=== PATIENT | male | born 1940 | race African-American/Black ===

== ENCOUNTER → 2016-06-15 | Outpatient (CLI) | payer MEDICARE ==
[2014-01-21 15:10] VITALS: BP 157/79
[~2016-06-15] MED LIST: ASPI81TA50 PO; CARV12.52 PO; CHOL20004 PO; CYAN10005 PO; IOHEXOL 180 MG/ML 10 ML VIAL. ONE; MULT1TAB52 PO; OMEG1CAP6 PO; SIMV20TA3 PO; SPIR25TA3 PO; methylPREDNISolone ACETATE 40 MG/ML VIAL. ONE; methylPREDNISolone ACETATE 80 MG/ML VIAL. ONE
--- NOTE | 2016-06-16 04:48 | PAIN ---
DATE OF SERVICE: 06/15/2016 DIAGNOSES: Lumbar radiculopathy with lumbar degenerative disk disease and lumbar spinal stenosis. HISTORY OF PRESENT ILLNESS: The patient is a 76-year-old male who returns for followup status post lumbar epidural steroid injection x 1. The patient reports only about 10% improvement in the low back and left leg and hip pain. The patient reports still significant pain with walking, standing, using a walker to ambulate, left hip, left lower extremity, again ____ for about a year. We reviewed his MRI scan with him again today demonstrating some significant impingement on the L4-L5 disk on the left side impinging the left L4 nerve root. The patient would like to try another injection today as we discussed it may take more of these so he ____ feeling much better and is hopeful with small improvement after the first injection that the second one may be more productive. The patient reports otherwise no new motor or sensory deficits, no new bowel or bladder incontinence or other complaints. The patient's old chart was reviewed as his current medication regimen and updated. Current review of systems updated today as well. PHYSICAL EXAMINATION: VITAL SIGNS: Today, the patient's blood pressure is 150/86, pulse 75, respirations 18, temperature 97.7 degrees Fahrenheit, weight is 158 pounds. GENERAL: The patient is awake, alert, oriented, appropriate, very pleasant demeanor. HEENT: Shows normocephalic, atraumatic. Extraocular movements are intact and symmetrical. Oral cavity shows mucous membranes are moist and pink. NECK: Shows anterior throat supple. CHEST: Shows breath sounds are clear to auscultation bilaterally. HEART: Shows S1 and S2 clear. BACK: Shows spine grossly in midline. Lumbar paraspinous musculature shows diffuse tenderness throughout the upper, middle and lower distribution and only diffusely without radiation. No tenderness over the sacrum or sacroiliac regions. EXTREMITIES: Lower extremities show deep tendon reflexes at 1+ in the patellar tendons. Motor exam is approximately 3 on a scale of 5 with right dorsiflexion, extension and 4/5 on the left. Options were discussed with the patient. We will proceed with a second lumbar epidural steroid injection today with fluoroscopic guidance. Risks were again discussed including, but not limited to bleeding, infection, possibility of epidural hematoma and subsequent neurological compromise, dural puncture, headaches, spinal cord and/or nerve damage, side effects of steroid medication and poor results regarding pain control. The patient understands and wishes to proceed. The patient will return to clinic in approximately 2 weeks for followup. He was counseled on return appointment, activity level and side effects to be aware of. DIAGNOSES: Lumbar radiculopathy with lumbar degenerative disk disease and lumbar spinal stenosis. PROCEDURE: Lumbar epidural steroid injection in translaminar approach at the L4-L5 level with fluoroscopic guidance under sterile prep and drape using local anesthetic. Medications injected 120 mg of Depo-Medrol plus 10 mL of preservative-free normal saline and 2 mL of Isovue contrast. Condition at discharge is stable. The patient tolerated the procedure well, had no complications. EUGENE JACOBS MD DR: DWAYNE/heide JOB#: [id number] / [id number]
== END | disposition home or self-care (01) ==
LOC: PNCL 09:48
PROVIDERS: ATTEND Anesthesiology
DX: M51.16 Intervertebral disc disorders with radiculopathy, lumbar region (principal)
CPT/HCPCS: 62323; J1030; J1040

== ENCOUNTER → 2016-06-29 | Outpatient (CLI) | payer MEDICARE ==
[2014-01-21 15:10] VITALS: BP 157/79
[~2016-06-29] MED LIST changes: -IOHEXOL 180 MG/ML 10 ML VIAL. ONE; -methylPREDNISolone ACETATE 40 MG/ML VIAL. ONE; -methylPREDNISolone ACETATE 80 MG/ML VIAL. ONE
--- NOTE | 2016-06-29 10:41 | PAIN ---
DATE OF SERVICE: 06/29/2016 PROGRESS NOTE CHIEF COMPLAINT: Lumbar radiculopathy with lumbar degenerative disk disease and lumbar spinal stenosis. HISTORY OF PRESENT ILLNESS: The patient is a 76-year-old male who returns for followup status post lumbar epidural steroid injections x 2. The patient reports only very minimal decrease in pain about 10% at the most, but still significant pain in the low back and left lower extremity as it was previously. The patient reports the pain is now back at baseline and has been since his second injection after about 2-3 days. The patient reports it as aching, dull, shooting pain in the left lateral and anterior thigh, medial thigh and to the medial lower leg as it was previously, much worse with standing and walking, but better with sitting down as he has had previously. The patient's MRI scan was reviewed with him today showing significant impingement in the left L4 nerve root at the L4-L5 level and also on the right at L5-S1 with more severe narrowing on the left at L4-L5. The patient reports his pain as a 2 on a scale of 10 with sitting, but it can be as high as a 9 or 10 with standing and walking. He is still using a walker to ambulate, reports aching and dull pain, shooting pain, sharp into the leg as previously. The patient reports no new motor or sensory deficits, no new bowel or bladder incontinence or other complaints. PHYSICAL EXAMINATION: VITAL SIGNS: Today, the patient's blood pressure is 148/83, pulse is 82, respirations 18, temperature 98.0 degrees Fahrenheit, height is 5 feet 8 inches and weighs 154 pounds. GENERAL: The patient is awake, alert, oriented, appropriate, very pleasant demeanor. HEENT: Shows normocephalic, atraumatic. Extraocular movements are intact and symmetrical. Oral cavity shows mucous membranes are moist and pink. Dentition is intact. NECK: Shows anterior throat supple without palpable lymphadenopathy noted. Swallow reflex is symmetrical. Neck shows full rotation and motion of cervical spine. CHEST: Shows normal on inspection. Breath sounds are clear to auscultation bilaterally. HEART: Shows S1 and S2 clear. ABDOMEN: Soft, nontender, and nondistended. No palpable organomegaly is noted. BACK: Shows spine grossly in midline. Lumbar paraspinous muscle shows some moderate tenderness throughout the upper, middle and lower distribution, but is symmetrical on inspection without evidence of atrophy or hypertrophy. No tenderness over the sacrum or sacroiliac regions. The patient does show good rotation and motion of lumbar spine, both laterally greater than 10 degrees as well as extension greater than 10 degrees, forward flexion 45 degrees without significant increase in pain. EXTREMITIES: Lower extremities show deep tendon reflexes 1+ in the patellar and tendo calcaneus tendons and are equal. Motor exam is approximately 3-4 on a scale 5 on the right with dorsiflexion, extension and 4/5 on the left. Peripheral pulses are 1+ posterior tibial and dorsalis pedis pulses. No peripheral edema is noted bilaterally. PLAN: Options were discussed with the patient. The patient's old chart was reviewed as his current medication regimen and updated. Current review of systems updated today as well. We will hold on any further injections as he has not had any significant improvement after the last injection. We did discuss possible neurosurgical alternatives and the patient would like to consider this and would also to discuss it with his primary physician first, but this may be the best recommendation and has to have more lasting pain relief as he has been resistant to conservative therapies at this point. Again, the patient will consider this, discuss it with his primary physician and followup on as needed basis. EUGENE JACOBS MD DR: DWAYNE/heide JOB#: [id number] / [id number] MARY GRACE Camacho
== END | disposition home or self-care (01) ==
LOC: PNCL 08:59
PROVIDERS: ATTEND Anesthesiology
DX: M51.16 Intervertebral disc disorders with radiculopathy, lumbar region (principal); M48.06 Spinal stenosis, lumbar region
CPT/HCPCS: G0463

== ENCOUNTER → 2016-08-12 | Outpatient (CLI) | payer MEDICARE ==
[2014-01-21 15:10] VITALS: BP 157/79
[~2016-08-12] MED LIST changes: +IOHEXOL 180 MG/ML 10 ML VIAL. IT ONE; +LIDOCAINE 1% Multi-Dose 20 ML VIAL. ID ONE
--- NOTE | 2016-08-12 11:41 | KCIC ---
PROCEDURE Fluoroscopic guided lumbar puncture for lumbar CT myelography; lumbar spine CT myelogram. HISTORY Chronic lower back pain. TECHNIQUE The risks of the procedure were discussed with the patient and written and verbal consent was obtained. A time-out was performed. Fluoroscopic imaging of the lumbar spine was performed and a site overlying L5-S1 was selected. The skin overlying this region was sterilely prepped, draped and infiltrated with 1 percent lidocaine. A 25 gauge needle was advanced into the thecal sac and appropriate needle tip position was confirmed with spontaneous yield of cerebral spinal fluid within the needle hub. 15 cc Omnipaque 180 intrathecal contrast was injected into the thecal sac. The needle was removed and a sterile bandage was placed at the needle entry site. Five fluoroscopic images were obtained in the prone, lateral neutral and flexion and extension positions. The total fluoroscopy time was 53 seconds. The patient was then transferred to the CT suite for the post injection CT portion of the exam. The patient tolerated the procedure without difficulty and was discharged in stable condition. One or more of the following individualized dose reduction techniques were utilized for this examination: 1. Automated exposure control; 2. Adjustment of the mA and/or kV according to patient size; 3. Use of iterative reconstruction technique. COMPARISON CT dated 04/22/2016. FINDINGS There is grade 1 anterolisthesis of L4 on L5, measuring 7 mm. This slightly increases with flexion and decreases with extension on fluoroscopic images. There is slight retrolisthesis of L1 on L2, and to a lesser extent, L2 on L3 and L3 on L4. This is not significantly change between flexion and extension. There is S shaped lumbar scoliosis, with levo curvature centered at L2-L3 and dextro curvature centered at L4-L5. There is degenerative endplate remodeling with osteophytosis and disc space narrowing primarily along the right aspect of L2-L3. This corresponds with the level of maximum scoliotic concavity. There is vacuum phenomenon at all levels. There is a suspected hemangioma within L4. No suspicious osseous lesion is seen. The conus terminates at T12-L1. There are wavy nerve roots throughout the cauda equina due to redundancy in the setting of central canal stenosis, described in detail below. There is vacuum phenomenon and minimal spurring involving the sacroiliac joints. There is a small bone island within the left sacrum and iliac bone. At T12-L1, there is a diffuse disc bulge and endplate remodeling with anterior osteophytosis. There is mild bilateral facet arthropathy. There is no stenosis. At L1-L2, there is a diffuse disc bulge and endplate remodeling with anterior osteophytosis. There is mild facet arthropathy. There is hypertrophy of the ligamentum flavum. There is retrolisthesis. There is mild bilateral foraminal stenosis with abutment of the exiting L1 nerve roots. There is mild central canal stenosis. At L2-L3, there is a right foraminal to lateral predominant disc bulge and endplate osteophytosis. There is mild to moderate right and moderate left facet arthropathy. There is hypertrophy of the ligamentum flavum. There is retrolisthesis. There is severe right and moderate left foraminal stenosis with effacement of the exiting right L2 nerve root. There is moderate central canal stenosis. At L3-L4, there is a diffuse disc bulge and endplate osteophytosis. There is mild right and moderate left facet arthropathy. There is hypertrophy of the ligamentum flavum. There is retrolisthesis. There is moderate to severe right and severe left foraminal stenosis with effacement of the exiting L3 nerve roots. There severe central canal stenosis with complete effacement of the thecal sac and crowding of the nerve roots. At L4-L5, there is a broad-based posterior central to left paracentral disc protrusion with extrusion extending 8 mm superior to the disc space. This is superimposed on a left lateral predominant disc bulge and endplate osteophytosis. There is anterolisthesis. There is moderate to severe facet arthropathy. There is hypertrophy of the ligamentum flavum. There is moderate to severe right and severe left foraminal stenosis with effacement of the exiting L4 nerve roots. There is moderate to severe central canal stenosis with near complete effacement of the thecal sac. At L5-S1, there is a diffuse disc bulge with bilateral posterior lateral predominant osteophyte complexes superimposed on a diffuse disc bulge. There is mild right and moderate left facet arthropathy. There is severe right and moderate to severe left foraminal stenosis with effacement of the exiting L5 nerve roots. IMPRESSION 1. Multilevel advanced degenerative change throughout the lower thoracic and lumbar spine, described in detail above. This results in mild bilateral foraminal and central canal stenosis at L1-L2, severe right and moderate left foraminal and moderate central canal stenosis at L2-L3, moderate to severe right and severe left foraminal and severe central canal stenosis at L3-L4, moderate to severe right and severe left foraminal with moderate to severe central canal stenosis at L4-L5, and severe right and moderate to severe left foraminal stenosis at L5-S1. 2. S shaped lumbar scoliosis and multilevel listhesis. There is grade 1 anterolisthesis of L4 on L5 which slightly changes between flexion and extension. Electronically signed by: Latonya Fuller (Aug 12, 2016 11:40:44)
== END | disposition home or self-care (01) ==
LOC: KCIC 09:21
PROVIDERS: ATTEND Neurological Surgery
DX: M47.896 Other spondylosis, lumbar region (principal); G89.29 Other chronic pain; M54.5 Low back pain; M48.06 Spinal stenosis, lumbar region
CPT/HCPCS: 72132; 72265

== ENCOUNTER → 2017-05-16 | Outpatient (CLI) | payer BC ==
[2014-01-21 15:10] VITALS: BP 157/79
[~2017-05-16] MED LIST changes: -CHOL20004 PO; +CHOL200074 PO; -IOHEXOL 180 MG/ML 10 ML VIAL. IT ONE; -LIDOCAINE 1% Multi-Dose 20 ML VIAL. ID ONE
--- NOTE | 2017-05-16 15:01 | KCIC ---
LUMBAR SPINE MIN 4V Clinical Indication: Chronic low back pain radiating into bilateral hips increasing times past 2 years. No injury. Comparison: CT lumbar spine post myelogram August 12, 2016. Findings: Degenerative endplate spurring in the lumbar spine. No acute compression fracture is seen. There is grade 1 anterolisthesis of L4 on L5 and grade 1 retrolisthesis of L1 on L2 and L2 on L3. The alignment is stable. There is disc space narrowing, vacuum disc phenomenon, and endplate sclerosis of L2/L3 and L5/S1. A pars defect is not identified on the bilateral oblique views. There is a catheter in the right abdomen. IMPRESSION: 1. No acute compression fracture. 2. Moderate degenerative spondylosis for patient age. Electronically signed by: James Babin MD (05/16/2017 2:57 PM) [id number]
--- NOTE | 2017-05-16 15:04 | KCIC ---
HIP BILATERAL WITH PELVIS Clinical Indication: Chronic low back pain into bilateral hips increasing x2 years. No injury. Comparison: None. Findings: No acute pelvic fracture. The sacroiliac joints are symmetric. No acute fracture or dislocation of the right or left hip. No significant joint space narrowing. Mild primary degenerative arthropathy. A catheter projects over the right iliac wing. IMPRESSION: No acute bone abnormality. Electronically signed by: James Babin MD (05/16/2017 3:00 PM) [id number]
== END | disposition home or self-care (01) ==
LOC: KCIC 14:00
PROVIDERS: ATTEND Family Medicine
DX: M47.896 Other spondylosis, lumbar region (principal)
CPT/HCPCS: 72110; 73521

== ENCOUNTER → 2017-06-09 | Outpatient (CLI) | payer BC | END | disposition home or self-care (01) | LOC: PNCL 08:21 | DX: M51.16 Intervertebral disc disorders with radiculopathy, lumbar region (principal); M48.061 Spinal stenosis, lumbar region without neurogenic claudication; M47.896 Other spondylosis, lumbar region | CPT/HCPCS: G0463 ==

== ENCOUNTER → 2018-08-31 | Outpatient (CLI) | payer BC ==
[2014-01-21 15:10] VITALS: BP 157/79
[~2018-08-31] MED LIST changes: +CARV12.511 PO; -CARV12.52 PO; +HYDR-2765 PO; -SPIR25TA3 PO; +SPIR25TA5 PO
--- NOTE | 2018-08-31 11:34 | CARD ---
MR#: [id number] Date of Study: 08/31/2018 Ordering Physician: ALYSSA HILL, Referring Physician: ALYSSA HILL, Tech: Jasmin Payton [facility] APPROVED REPORT EXAM: Two-dimensional and M-mode echocardiogram with Doppler and color Doppler. Other Information Quality : AverageHR: 73bpm Rhythm : NSR INDICATION Pre-Op 2D DIMENSIONS RVDd3.0 (2.9-3.5cm)Left Atrium(2D)3.2 (1.6-4.0cm) IVSd1.2 (0.7-1.1cm)Aortic Root(2D)3.7 (2.0-3.7cm) LVDd5.2 (3.9-5.9cm)LVOT Diameter2.3 (1.8-2.4cm) PWd0.8 (0.7-1.1cm)LVDs3.9 (2.5-4.0cm) FS (%) 26.1 %SV67.2 ml LVEF(%)50.8 (>50%) M-Mode DIMENSIONS RVDd2.51 (2.1-3.2cm)Left Atrium(MM)3.29 (2.5-4.0cm) IVSd1.04 (0.7-1.1cm)Aortic Root3.60 (2.2-3.7cm) LVDd4.76 (4.0-5.6cm)PWd1.04 (0.7-1.1cm) IVSs1.50 cmFS (%) 28 % LVDs3.43 (2.0-3.8cm)ESV(Teich)48.5 ml PWs1.44 cmLVEF(%)54 (>50%) Aortic Valve AoV Peak Nehemias.110.5cm/sAoV VTI19.8cm AO Peak GR.4.9mmHgLVOT Peak Nehemias.89.2cm/s AO Mean GR.2mmHgAVA (VMAX)3.36cm2 ALBARO (VTI)3.15fa1WU P 1/2 Qglk624nl Mitral Valve MV E Yvshqrcf08.2cm/sMV DECEL SPDO567we MV A Xgcgbpyj66.8cm/sE/A Ratio0.8 MV A Ffxikcte699lh Pulmonary Valve PV Peak Hapvyops353.7cm/s Tricuspid Valve TR P. Ixppmkgc763jx/sRAP YIVAZRDF8uqEb TR Peak Gr.48rnTdFIUC41laCb LEFT VENTRICLE The left ventricle is normal size. There is borderline to mild concentric left ventricular hypertroph y. Left ventricle systolic function is low normal. The Ejection Fraction is 50-55%. Basal inferolater al wall is hypokinetic. Remainder of the LV is grossly normal. Transmitral Doppler flow pattern is Gr rafael I-abnormal relaxation pattern. RIGHT VENTRICLE The right ventricle is normal size. There is normal right ventricular wall thickness. The right ventr icular systolic function is normal. Pacer lead noted in RV/RA. ATRIA The left atrium size is normal. The right atrium size is normal. The interatrial septum is intact wit h no evidence for an atrial septal defect or patent foramen ovale as noted on 2-D or Doppler imaging. AORTIC VALVE The aortic valve is calcified but opens well. The aortic valve is trileaflet. Doppler and Color Flow revealed mild aortic regurgitation. There is no significant aortic valvular stenosis. MITRAL VALVE The mitral valve is normal in structure and function. There is no evidence of mitral valve prolapse. There is no mitral valve stenosis. Doppler and Color-flow revealed mild mitral regurgitation. TRICUSPID VALVE The tricuspid valve is normal in structure and function. Doppler and Color Flow revealed trace to mil d tricuspid regurgitation. The PA pressure was estimated at 32 mmHg. There is no tricuspid valve prol apse or vegetation. There is no tricuspid valve stenosis. PULMONIC VALVE Doppler and Color Flow revealed mild pulmonic valvular regurgitation. There is no pulmonic valvular s tenosis. GREAT VESSELS The aortic root is mildly enlarged. The ascending aorta is normal in size. The IVC is normal in size and collapses >50% with inspiration. PERICARDIAL EFFUSION There is no evidence of significant pericardial effusion. Critical Notification Critical Value: No <Conclusion> Left ventricle systolic function is low normal. The Ejection Fraction is 50-55%. Basal inferolateral wall is hypokinetic. Remainder of the LV is grossly normal. Pacer lead noted in RV/RA. Signed by : You Kim, Electronically Approved : 08/31/2018 11:34:23
== END | disposition home or self-care (01) ==
LOC: ECHO 10:33
PROVIDERS: ATTEND Internal Medicine Cardiovascular Disease
DX: Z01.818 Encounter for other preprocedural examination (principal); I08.0 Rheumatic disorders of both mitral and aortic valves; I70.0 Atherosclerosis of aorta
CPT/HCPCS: 93306

== ENCOUNTER → 2019-03-06 | Outpatient (CLI) | payer BC ==
[2014-01-21 15:10] VITALS: BP 157/79
[~2019-03-06] MED LIST changes: +CYAN-25 PO; -CYAN10005 PO
--- NOTE | 2019-03-06 13:16 | KCIC ---
EXAM: Left hip, 2 views. HISTORY: Pain. COMPARISON: None. FINDINGS: 2 views left hip are obtained. There is no fracture, dislocation or subluxation. There is marginal femoral head and acetabular degenerative spurring. There is instrumented fusion and degenerative change involving the visualized lumbar spine. IMPRESSION: Mild left hip osteoarthritis. Electronically signed by: Latonya Fuller MD (03/06/2019 1:13 PM) [facility]
== END | disposition home or self-care (01) ==
LOC: KCIC 11:46
PROVIDERS: ATTEND Family Medicine
DX: M16.12 Unilateral primary osteoarthritis, left hip (principal); M25.552 Pain in left hip; M24.652 Ankylosis, left hip
CPT/HCPCS: 73502

== ENCOUNTER → 2019-08-02 | Outpatient (CLI) | payer BC ==
[2014-01-21 15:10] VITALS: BP 157/79
[~2019-08-02] MED LIST changes: +BUPIVACAINE MPF 0.25% 10 ML VIAL. ONE; +IOHEXOL 180 MG/ML 10 ML VIAL. ONE; +SIMV20TA18 PO; -SIMV20TA3 PO; +methylPREDNISolone ACETATE 80 MG/ML VIAL. ONE
--- NOTE | 2019-08-02 14:15 | PAIN ---
DATE OF SERVICE: 08/02/2019 PROGRESS NOTE FOR PAIN CLINIC DIAGNOSES: 1. Lumbar radiculopathy with lumbar spinal stenosis, lumbar degenerative disk disease, lumbar spondylosis and post-lumbar laminectomy syndrome. 2. Left hip joint pain with primary osteoarthritis. HISTORY OF PRESENT ILLNESS: The patient is a 79-year-old male who returns for followup, last seen 06/2017. The patient had lumbar epidural steroid injection with only minimal decrease in pain. The patient subsequently reports he has been to , has had lumbar laminectomy, also had a spinal cord stimulator trial prior to that which was not helpful. The patient reports that after the surgery, the pain is still the same in his low back and his left hip. The patient reports it is a 10 on a scale of 10 at its worst, average and least over the past week and is a 10 today. The patient reports it is aching and shooting, stabbing in the left hip, posterior gluteus, lateral thigh and into the groin at times, worse with weightbearing, standing, walking, especially climbing stairs or stepping on a step or curb with his left leg and all his weight on his left side. The patient results his back is doing better in the back itself, but the pain in the left hip and leg is still significant. The patient reports no new motor or sensory deficits. Reports it is better with sitting or lying down, but if he sits for more than about an hour or so, the pain stimulates as well and with riding in a car the pain is stimulated as well. The patient reports it is better with lying down; does not generally awaken him from sleep at night. PHYSICAL EXAMINATION: VITAL SIGNS: The patient's blood pressure 146/83, pulse 81, respirations 18, temperature 98.3 degrees Fahrenheit, height is 5 feet 8 inches, weight is 161 pounds. GENERAL: The patient is awake, alert, oriented, appropriate, very pleasant demeanor. The patient is accompanied by his spouse. HEENT: Shows normocephalic, atraumatic. Extraocular movements are intact and symmetrical. Oral cavity: Mucous membranes moist and pink. NECK: Shows anterior throat supple. CHEST: Shows normal on inspection. Breath sounds are clear to auscultation bilaterally. HEART: Shows S1, S2 clear. ABDOMEN: Soft, nontender, nondistended. BACK: Shows spine grossly in the midline. Well-healed surgical scars noted in the lumbar distribution, some flattening of lumbar lordotic curvature, normal thoracic kyphotic curvature. Lumbar paraspinous muscle shows symmetrical on inspection, on palpation shows some mild tenderness diffusely throughout the upper, middle and lower distribution of paraspinous muscles bilaterally, but only diffusely without significant radiation. The patient does show good rotational motion of lumbar spine, both laterally as well as extension and flexion without difficulty. No tenderness over the spinous processes, sacrum or sacroiliac regions. EXTREMITIES: The patient's lower extremities show deep tendon reflexes at 1+ in the patellar and tendo calcaneus tendons. Motor exam is approximately 4 on a scale of 5, but equal and symmetrical dorsiflexion, extension, quadriceps and hamstring flexion. Peripheral pulses are 1+ posterior tibia. No peripheral edema is noted bilaterally. The patient's left leg shows a positive Armando's maneuver with external rotation and posterior displacement of the left hip, but only mildly so with moderate pain reported in the groin as well as in the posterior hip. Right side is negative. Options were discussed with the patient. The patient's old chart was reviewed as his current medication regimen updated. Current review of systems updated today as well. We will proceed with a left intraarticular hip joint injection today with fluoroscopic guidance. Risks were discussed including but not limited to bleeding, infection, possibility of intravascular injection sequelae, spread of local anesthetic and numbness, side effects of steroid medication and poor results regarding pain control. The patient understands and wished to proceed. The patient will return to clinic in approximately 2 weeks for followup. He was counseled on return appointment, activity level and side effects to be aware of. DIAGNOSES: Left hip joint pain with primary osteoarthritis, left hip joint. PROCEDURE: Left intraarticular hip joint injection using C-arm fluoroscopic guidance under sterile prep and drape using local anesthetic. MEDICATION INJECTED: A total of 80 mg Depo-Medrol plus total of 3 mL of 0.25% bupivacaine and 2 mL of contrast. CONDITION AT DISCHARGE: Stable. The patient tolerated the procedure well, had no complications. EUGENE JACOBS MD DR: DWAYNE/heide JOB#: [id number] / [id number]
== END ==
LOC: PNCL 10:58
PROVIDERS: ATTEND Anesthesiology
DX: M16.12 Unilateral primary osteoarthritis, left hip (principal); M51.16 Intervertebral disc disorders with radiculopathy, lumbar region; M48.061 Spinal stenosis, lumbar region without neurogenic claudication; M96.1 Postlaminectomy syndrome, not elsewhere classified
CPT/HCPCS: 20610; 77002; J1040; J3490; Q9965